=== PATIENT | male | born 1990 | race Caucasian/White ===

== ENCOUNTER 2017-10-21 00:44 | Emergency (ER) | payer SELFPAY ==
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
== END 2017-10-21 02:32 | disposition home or self-care (01) ==
LOC: ER 00:44
DX: S00.93XA Contusion of unspecified part of head, initial encounter (principal); M54.2 Cervicalgia; R68.84 Jaw pain; J34.89 Other specified disorders of nose and nasal sinuses; V43.61XA Car passenger injured in collision with sport utility vehicle in traffic accident, initial encounter
CPT/HCPCS: 70450; 70486; 72125; 99283; 99284